=== PATIENT | male | born 1960 | race Caucasian/White ===

== ENCOUNTER 2019-10-31 15:50 | Outpatient (CLI) | payer BC, SELFPAY ==
--- NOTE | ~2019-10-31 | CT_ITS ---
EXAMINATION: CTA abdomen DATE: 10/31/2019 18:02 CDT INDICATION: Thrombosis of the superior mesenteric artery. TECHNIQUE: Computed tomographic angiography (CTA) of the abdomen was performed without and with 100 m L Omnipaque-350 intravenous contrast. The dose-length product was 315.64 mGy-cm. Maximum intensity pr ojection 3D-reconstructions of the aorta and other arteries were constructed by the technologist on a separate workstation. COMPARISON: CT dated 06/13/2019. FINDINGS: There is minimal persistent narrowing of the distal aspect of the superior mesenteric arter y with probable mild chronic adherent thrombus, although there is improved contrast opacification of the SMA. The celiac axis is widely patent. The renal arteries are widely patent. No evidence for aort ic aneurysm or dissection. The liver, spleen, pancreas, adrenal glands and kidneys are unremarkable. Bowel gas pattern is nonobs tructive. Moderate colonic fecal loading. No free air or free fluid. There is focal fatty infiltratio n of the liver near the falciform ligament. There is severe lower lumbar spondylosis. IMPRESSION: 1. Improved contrast opacification of the superior mesenteric artery with decreased adherent chronic thrombosis of the arterial wall. Reviewed, dictated and finalized at location A. IMPRESSION: 1. Improved contrast opacification of the superior mesenteric artery with decre ased adherent chronic thrombosis of the arterial wall.
[2019-10-31 16:22] LABS: Estimated Glomerular Filt Rate > 60
== END 2019-10-31 15:51 | disposition home or self-care (01) ==
PROVIDERS: PCP Physician Assistant; Visit Provider Physician Assistant
DX: K55.069 Acute infarction of intestine, part and extent unspecified (principal); R91.8 Other nonspecific abnormal finding of lung field
CPT/HCPCS: 36415; 74175; Q9967